=== PATIENT | male | born 1990 | race African-American/Black ===

== ENCOUNTER 2017-04-26 02:00 | Emergency (ER) | payer SELFPAY ==
[~2017-04-26] VITALS: Ht 167.6 cm; Wt 81.8 kg
[~2017-04-26 02:00] MED LIST: ACET-66 PO; ALBU8HFA IH
[2017-04-26] MEDS ORDERED: ALBUTEROL SULFATE 2.5 MG/0.5 ML NEB SOLUTION NEB ONE (02:15)
[2017-04-26] MEDS ORDERED: IPRATROPIUM BROMIDE 0.5 MG/2.5 ML NEB SOLUTION NEB ONE (02:15)
[2017-04-26] MEDS ORDERED: 0.9% SODIUM CHLORIDE 5 ML NEB SOLUTION NEB ONE (02:19)
[2017-04-26 02:37] VITALS: BP 135/74
== END 2017-04-26 03:10 | disposition left against medical advice (07) ==
LOC: EMS 02:01
DX: J45.901 Unspecified asthma with (acute) exacerbation (principal); F17.210 Nicotine dependence, cigarettes, uncomplicated; Z53.21 Procedure and treatment not carried out due to patient leaving prior to being seen by health care provider
CPT/HCPCS: 94640; 99281; J7613; 99283